=== PATIENT | male | born 2000 | race Caucasian/White ===

== ENCOUNTER 2019-03-08 07:08 | Emergency (ER) | payer BC ==
--- NOTE | 2019-03-08 07:49 | ER Document Report ---
ED General - General Stated Complaint: POSSIBLE OVERDOSE Time Seen by Provider: 03/08/19 07:48 Primary Care Provider: [facility] [Provider Group] - Follow up as needed [facility] [Provider Group] - Follow up as needed Notes: Patient is a 22-year-old male that presents to the emergency department for chief complaint of opiate overdose. Patient states that he snorted heroin around 4 AM this morning, and apparently he was on a snapshot with a friend, and then went unresponsive and his friend called EMS. EMS arrived patient was unresponsive, given 1 mg of intranasal Narcan 1 mg of IV Narcan given 500 mL's of IV fluids. Patient responded, and is now alert and oriented. At this time the patient states that he wants to go home, has no complaints. He does not want any further treatments, states he only did this once, states he is feeling somewhat depressed, but denies any intent for suicide, denies any homicidal or suicidal ideations at this time. He states he has had some depression and anxiety, cannot point to any particular reason why, has not seek treatment for this anytime recently. He states he smokes marijuana on a daily basis. He denies chest pain, shortness of breath, nausea, vomiting, or abdominal pain. Past Medical History: anxiety/depression Past Surgical History: denies pertinent surgical history Social History: former smoker, admits to THC use and heroin use, and occasional ETOH use. Family History: Reviewed and noncontributory for presenting illness Allergies: Reviewed, see documented allergy list. REVIEW OF SYSTEMS: Other than noted above, the 12 point review of systems was reviewed with the patient and were negative, all pertinent findings are included in the HPI. PHYSICAL EXAMINATION: Vital signs reviewed, nursing noted reviewed. GENERAL: Well-appearing, well-nourished and in no acute distress. HEAD: Atraumatic, normocephalic. EYES: Eyes appear normal, extraocular movements intact, sclera anicteric, conjunctiva are normal. ENT: nares patent, oropharynx clear without exudates. Lips mildly dry, mucous membranes moist however. NECK: Normal range of motion, supple without lymphadenopathy LUNGS: Breath sounds clear to auscultation bilaterally and equal. No wheezes rales or rhonchi. HEART: Regular rate and rhythm without murmurs ABDOMEN: Soft, nontender, normoactive bowel sounds. No rebound, guarding, or rigidity. No masses appreciated. EXTREMITIES: Nontender, good range of motion, no pitting or edema. NEUROLOGICAL: No focal neurological deficits. Moves all extremities spontaneously Motor and sensory grossly intact on exam. PSYCH: Normal mood, normal affect. SKIN: Warm, Dry, normal turgor, no rashes or lesions noted on exposed skin - Related Data Allergies/Adverse Reactions: erythromycin base [Erythromycin Base] Allergy (Unknown, Verified 04/10/12 20:36) Past Medical History - Social History Smoking Status: Former Smoker Family History: Reviewed & Not Pertinent - Immunizations Immunizations up to date: Yes Hx Diphtheria, Pertussis, Tetanus Vaccination: Yes - last year Physical Exam - Vital signs Vitals: Temp Pulse Resp BP Pulse Ox 98.2 F 80 17 136/84 H 98 03/08/19 09:11 03/08/19 09:11 03/08/19 09:11 03/08/19 09:11 03/08/19 09:11 Course - Re-evaluation Re-evalutation: Patient seen and examined vital signs reviewed. Patient was evaluated and treated as appropriate for the patient's presenting symptoms and complaint, with consideration of any critical or life threatening conditions that may be associated with their obtained history and exam as noted above. Patient was treated with Narcan by EMS The patient was re-evaluated and was stable, monitored in the ER, without deterioration Evaluation was most consistent with opiate overdose, patient given resources for addiction medicine, as well as for mental health, mother was present as well, and patient was agreeable with this plan of care. Plan of care was discussed with the patient at this point, after careful consideration I feel that that patient can be discharged from the emergency department, the patient was educated treatments and reasons to return to the emergency department based on their presumed diagnosis as noted above, they were advised to followup with a primary care physician in 2-3 days. Patient was agreeable to plan of care. *Note is created using voice recognition software and may contain spelling, syntax or grammatical errors. - Vital Signs Vital signs: Temp Pulse Resp BP Pulse Ox 98.2 F 80 17 136/84 H 98 03/08/19 09:11 03/08/19 09:11 03/08/19 09:11 03/08/19 09:11 03/08/19 09:11 - EKG Interpretation by Me Additional EKG results interpreted by me: EKG demonstrates sinus rhythm with a ventricular rate of 83 bpm, normal axis, normal intervals, no evidence of acute ischemia in this EKG. No prior for comparison. Discharge - Discharge Clinical Impression: Opiate overdose Qualifiers: Encounter type: initial encounter Injury intent: accidental or unintentional Qualified Code(s): T40.601A - Poisoning by unspecified narcotics, accidental (unintentional), initial encounter Condition: Stable Disposition: HOME, SELF-CARE Instructions: Instructions for Home Care Following a Drug Overdose ([facility]) Additional Instructions: [facility]up with [facility], if you do have depression, or do have suicidal thoughts at any time, you can always call the mobile crisis line, which is provided with your paperwork. Please do not use any illegal drugs, as they can be fatal. Referrals: [facility] [Provider Group] - Follow up as needed [facility] [Provider Group] - Follow up as needed
[2019-03-08 09:12] VITALS: BP 136/84
--- NOTE | 2019-03-09 19:09 | EKG REPORT ---
SEVERITY:- NORMAL ECG - SINUS RHYTHM : Confirmed by: Luis Cotter MD 09-Mar-2019 19:08:37
== END 2019-03-08 09:12 | disposition home or self-care (01) ==
LOC: ER 07:08
DX: T40.601A Poisoning by unspecified narcotics, accidental (unintentional), initial encounter (principal); Z87.891 Personal history of nicotine dependence; F12.90 Cannabis use, unspecified, uncomplicated; F11.90 Opioid use, unspecified, uncomplicated
CPT/HCPCS: 93005; 93010; 99285

== ENCOUNTER 2019-03-27 22:13 | Emergency (ER) | payer BC ==
[2019-03-27 22:23] VITALS: BP 142/91
[2019-03-27] MEDS ORDERED: NORMAL SALINE 1000 ML 1,000 ML IV ONE (23:44)
--- NOTE | 2019-03-27 23:45 | ER Document Report ---
ED Medical Screen (RME) - General Chief Complaint: Medical Complaint Stated Complaint: WEAKNESS Time Seen by Provider: 03/27/19 23:33 Notes: Patient is a 19-year-old male with a history of a seizure disorder who presents to the emergency department today with a chief complaint of altered coordination. Patient states he did take his Aptum medication for his seizure disorder this morning. He states he has not been to drink alcohol while taking this medication but he did have a small amount of liquor and 3-4 mixed drinks. Patient states his last drink was around 4 PM. Patient states he laid down for a nap at that time and when he woke up tonight he felt off balance and felt like his coordination was off. Patient states that from the waist up he feels fine but from the waist down he just feels very weak. Patient denies numbness or tingling to his legs. Patient reports he does smoke marijuana but has not used any other recreational drugs in 2 weeks. Patient states he was seen in the emergency department 2 weeks ago for possible heroin overdose. Patient states that he has drank on his seizure medication before and these are the similar symptoms that he has experienced before. TRAVEL OUTSIDE OF THE [place] IN LAST 30 DAYS: No - Related Data Allergies/Adverse Reactions: erythromycin base [Erythromycin Base] Allergy (Unknown, Verified 03/27/19 22:15) Past Medical History Renal/ Medical History: Denies: Hx Peritoneal Dialysis - Immunizations Immunizations up to date: Yes Hx Diphtheria, Pertussis, Tetanus Vaccination: Yes - last year Physical Exam - Vital signs Vitals: Temp Pulse Resp BP Pulse Ox 98.3 F 88 16 142/91 H 99 03/27/19 22:21 03/27/19 22:21 03/27/19 22:21 03/27/19 22:21 03/27/19 22:21 - Cardiovascular Rhythm: Regular Heart sounds: Normal auscultation, S1 appreciated Course - Re-evaluation Re-evalutation: 03/27/19 23:43 Patient is in no acute distress in triage. Patient is mentating appropriately. I have greeted and performed a rapid initial assessment of this patient. A comprehensive ED assessment and evaluation of the patient, analysis of test results and completion of the medical decision making process will be conducted by additional ED providers. - Vital Signs Vital signs: Temp Pulse Resp BP Pulse Ox 98.3 F 88 16 142/91 H 99 08/03/19 22:21 03/27/19 22:21 03/27/19 22:21 03/27/19 22:21 03/27/19 22:21
[2019-03-28 00:06] LABS: ABSOLUTE EOSINOPHILS # (AUTO) 0.3 10^3/uL (0.0-0.6); ABSOLUTE LYMPHOCYTES (AUTO) 1.3 10^3/uL (0.5-4.7); ABSOLUTE MONOCYTES (AUTO) 0.8 10^3/uL (0.1-1.4); ABSOLUTE NEUT (AUTO) 5.3 10^3/uL (1.7-8.2); BASOPHILS % (AUTO) 0.6 % (0-2); EOSINOPHILS % (AUTO) 3.7 % (0-6); HEMATOCRIT 47.1 % (37.9-51.0); HEMOGLOBIN 16.4 g/dL (13.5-17.0); LYMPHOCYTES % (AUTO) 16.9 % (13-45); MEAN CORPUSCULAR HGB CONC 34.8 g/dL (32.0-36.0); MEAN CORPUSCULAR VOLUME 86 fl (80-97); MONOCYTES % (AUTO) 10.4 % (3-13); PLATELET COUNT 200 10^3/uL (150-450); RED BLOOD COUNT 5.47 10^6/uL (4.35-5.55); SEGMENTED NEUTROPHILS % (AUTO) 68.4 % (42-78); TOTAL CELLS COUNTED % (AUTO) 100 %; WHITE BLOOD COUNT 7.8 10^3/uL (4.0-10.5)
[2019-03-28 00:16] LABS: APPEARANCE,URINE TURBID; BILIRUBIN,URINE NEGATIVE (NEGATIVE); COLOR,URINE YELLOW; GLUCOSE, URINE NEGATIVE (NEGATIVE); KETONES,URINE NEGATIVE (NEGATIVE); LEUKOCYTE ESTERASE,URINE NEGATIVE (NEGATIVE); NITRITE,URINE NEGATIVE (NEGATIVE); PROTEIN,URINE NEGATIVE (NEGATIVE); URIC ACID CRYSTALS,URINE TOO NUMEROUS TO CNT /HPF; URINE SPECIFIC GRAVITY 1.023; UROBILINOGEN,URINE NEGATIVE mg/dL (<2.0)
[2019-03-28 00:26] LABS: URINE AMPHETAMINES SCREEN NEGATIVE; URINE BARBITURATES SCREEN NEGATIVE; URINE BENZODIAZEPINES SCREEN NEGATIVE; URINE COCAINE SCREEN UNCONFIRMED POSITIVE; URINE MARIJUANA (THC) SCREEN UNCONFIRMED POSITIVE; URINE METHADONE SCREEN NEGATIVE; URINE PHENCYCLIDINE SCREEN NEGATIVE
[2019-03-28 00:28] LABS: ALBUMIN 4.6 g/dL (3.5-5.0); ALCOHOL 107 mg/dL (NONE DETECTED); ALKALINE PHOSPHATASE 73 U/L (38-126); ANION GAP 8 (5-19); ASPARTATE AMINO TRANSFERASE 21 U/L (17-59); BILIRUBIN,DIRECT 0.1 mg/dL (0.0-0.4); BILIRUBIN,TOTAL 0.3 mg/dL (0.2-1.3); BLOOD UREA NITROGEN 17 mg/dL (7-20); CALCIUM 9.3 mg/dL (8.4-10.2); CARBON DIOXIDE 27 mmol/L (22-30); CHLORIDE 106 mmol/L (98-107); GLUCOSE 91 mg/dL (75-110); POTASSIUM 4.5 mmol/L (3.6-5.0); TOTAL PROTEIN 7.3 g/dL (6.3-8.2)
--- NOTE | 2019-03-28 01:50 | ER Document Report ---
ED General - General Chief Complaint: Medical Complaint Stated Complaint: WEAKNESS Time Seen by Provider: 03/27/19 23:33 Notes: 19-year-old male the emergency department chief complaint altered mental status. Patient reports that he has been drinking today. Is on seizure medications that he has not taken in approximately 2 weeks and took it today as well. States that he did cocaine about 2 weeks ago. Denies any other symptoms. States that he was excessively sleepy earlier but did not have a seizure. Denies any fever, chills, sweats. No other issues at this time. Patient also admits to smoking marijuana. TRAVEL OUTSIDE OF THE [place] IN LAST 30 DAYS: No - HPI Onset: Just prior to arrival Severity: None Pain Level: Denies Associated symptoms: None - Related Data Allergies/Adverse Reactions: erythromycin base [Erythromycin Base] Allergy (Unknown, Verified 03/27/19 22:15) Past Medical History - General Information source: Patient - Social History Smoking Status: Current Every Day Smoker Chew tobacco use (# tins/day): No Frequency of alcohol use: Heavy Drug Abuse: Cocaine, Heroin, Marijuana Lives with: Family Family History: Reviewed & Not Pertinent Patient has suicidal ideation: No Patient has homicidal ideation: No Neurological Medical History: Reports: Hx Seizures Renal/ Medical History: Denies: Hx Peritoneal Dialysis - Immunizations Immunizations up to date: Yes Hx Diphtheria, Pertussis, Tetanus Vaccination: Yes - last year Review of Systems - Review of Systems Notes: Constitutional: denies: Chills, Diaphoresis, Fever, Malaise, Weakness states that he was excessively sleepy earlier EENT: denies: Eye discharge, Blurred vision, Tearing, Double vision, Nose conges tion, Nose discharge, Throat swelling, Mouth pain Cardiovascular: denies: Palpitations, Heart racing, Orthopnea, Dyspnea, Chest pain Respiratory: denies: Cough, Hurts to breathe, Wheezing, Shortness of breath Gastrointestinal: denies: Abdominal pain, Diarrhea, Nausea, Vomiting, Black stools, bright red blood in stool Genitourinary: denies: Burning, Dysuria, Discharge, Frequency, Flank pain, He maturia Musculoskeletal: denies: Joint pain, Joint swelling, Muscle pain, Muscle stiffness, back pain Hematologic/Lymphatic: denies: Anemia, Easy bleeding, Easy bruising, Blood clots Neurological/Psychological: denies: Confusion, Dementia, Depression, Loss of consciousness Skin: No lesions, no masses, no skin breakdown, no abscesses Physical Exam - Vital signs Vitals: Temp Pulse Resp BP Pulse Ox 98.3 F 88 16 142/91 H 99 03/27/19 22:21 03/27/19 22:21 03/27/19 22:21 03/27/19 22:21 03/27/19 22:21 Interpretation: Normal - General General appearance: Appears well, Alert - HEENT Head: Normocephalic, Atraumatic Eyes: Normal Pupils: PERRL - Respiratory Respiratory status: No respiratory distress Chest status: Nontender Breath sounds: Normal Chest palpation: Normal - Cardiovascular Rhythm: Regular Heart sounds: Normal auscultation Murmur: No - Abdominal Inspection: Normal Distension: No distension Bowel sounds: Normal Tenderness: Nontender Organomegaly: No organomegaly - Back Back: Normal, Nontender - Extremities General upper extremity: Normal inspection, Nontender, Normal color, Normal ROM, Normal temperature General lower extremity: Normal inspection, Nontender, Normal color, Normal ROM, Normal temperature, Normal weight bearing. No: Sydnee's sign - Neurological Neuro grossly intact: Yes Cognition: Normal Orientation: AAOx4 Clive Coma Scale Eye Opening: Spontaneous Clive Coma Scale Verbal: Oriented Clive Coma Scale Motor: Obeys Commands Clive Coma Scale Total: 15 Speech: Normal Motor strength normal: LUE, RUE, LLE, RLE Sensory: Normal - Psychological Associated symptoms: Normal affect, Normal mood - Skin Skin Temperature: Warm Skin Moisture: Dry Skin Color: Normal Course - Re-evaluation Re-evalutation: 03/28/19 01:51 Family members were present approximately 4 than were in the room. Before I could begin speaking with the patient they wanted know what the results of his drug screen was. I politely informed him that my discussion was being had with an adult male and that I would not be able to disclose any of that information without his permission. Patient did state that I could disclose the alcohol l evel in front of the family members which I did at his request. I then felt like I was being pressured to give information for which I did not feel comfortable with. I politely asked all the family members to leave. Had a kita discussion with the patient and the patient only with regards to his positive drug screen. Patient did admit that he had done cocaine about 2 weeks ago, had shot some heroin and smoked some weed as well. States that he has been drinking. He states that his family members keep bothering him. He does not want help. States that he is just being a little crazy for little while but does not think he is a harm to himself or others. Patient at this time maintains a clear train of thought. I do not think the patient is able to be placed on involuntary commission by any means at this time. He is awake, alert, has responsible adults with him, feel comfortable discharging at this time in stable condition. Long discussion had with the patient as well about taking his seizure medications as instructed and not to do alcohol or any illicit drugs. I also reiterated to him as well that marijuana is considered an illegal drug and state in [place] and that he should probably not do that either. 03/28/19 01:56 Laboratory 03/27/19 03/27/19 03/27/19 23:55 23:55 23:55 WBC 7.8 RBC 5.47 Hgb 16.4 Hct 47.1 MCV 86 MCH 30.0 MCHC 34.8 RDW 13.0 Plt Count 200 Seg Neutrophils % 68.4 Lymphocytes % 16.9 Monocytes % 10.4 Eosinophils % 3.7 Basophils % 0.6 Absolute Neutrophils 5.3 Absolute Lymphocytes 1.3 Absolute Monocytes 0.8 Absolute Eosinophils 0.3 Absolute Basophils 0.0 Sodium 141.0 Potassium 4.5 Chloride 106 Carbon Dioxide 27 Anion Gap 8 BUN 17 Creatinine 1.18 Est GFR ( Amer) > 60 Est GFR (Non-Af Amer) > 60 Glucose 91 Calcium 9.3 Total Bilirubin 0.3 Direct Bilirubin 0.1 Neonat Total Bilirubin Not Reportable Neonat Direct Bilirubin Not Reportable Neonat Indirect Bili Not Reportable AST 21 ALT 34 Alkaline Phosphatase 73 Total Protein 7.3 Albumin 4.6 Urine Color YELLOW Urine Appearance TURBID Urine pH 5.0 Ur Specific Warren 1.023 Urine Protein NEGATIVE Urine Glucose (UA) NEGATIVE Urine Ketones NEGATIVE Urine Blood NEGATIVE Urine Nitrite NEGATIVE Urine Bilirubin NEGATIVE Urine Urobilinogen NEGATIVE Ur Leukocyte Esterase NEGATIVE Urine RBC (Auto) 1 Urine Bacteria (Auto) TRACE Uric Acid Cryst (Auto) TOO NUMEROUS TO CNT Urine Mucus (Auto) RARE Urine Ascorbic Acid 20 H Urine Opiates Screen Urine Methadone Screen Ur Barbiturates Screen Ur Phencyclidine Scrn Ur Amphetamines Screen U Benzodiazepines Scrn Urine Cocaine Screen U Marijuana (THC) Screen Serum Alcohol 107 03/27/19 23:55 WBC RBC Hgb Hct MCV MCH MCHC RDW Plt Count Seg Neutrophils % Lymphocytes % Monocytes % Eosinophils % Basophils % Absolute Neutrophils Absolute Lymphocytes Absolute Monocytes Absolute Eosinophils Absolute Basophils Sodium Potassium Chloride Carbon Dioxide Anion Gap BUN Creatinine Est GFR ( Amer) Est GFR (Non-Af Amer) Glucose Calcium Total Bilirubin Direct Bilirubin Neonat Total Bilirubin Neonat Direct Bilirubin Neonat Indirect Bili AST ALT Alkaline Phosphatase Total Protein Albumin Urine Color Urine Appearance Urine pH Ur Specific Warren Urine Protein Urine Glucose (UA) Urine Ketones Urine Blood Urine Nitrite Urine Bilirubin Urine Urobilinogen Ur Leukocyte Esterase Urine RBC (Auto) Urine Bacteria (Auto) Uric Acid Cryst (Auto) Urine Mucus (Auto) Urine Ascorbic Acid Urine Opiates Screen NEGATIVE Urine Methadone Screen NEGATIVE Ur Barbiturates Screen NEGATIVE Ur Phencyclidine Scrn NEGATIVE Ur Amphetamines Screen NEGATIVE U Benzodiazepines Scrn NEGATIVE Urine Cocaine Screen UNCONFIRMED POSITIVE U Marijuana (THC) Screen UNCONFIRMED POSITIVE Serum Alcohol - Vital Signs Vital signs: Temp Pulse Resp BP Pulse Ox 98.3 F 88 16 142/91 H 99 03/27/19 22:21 03/27/19 22:21 03/27/19 22:21 03/27/19 22:21 03/27/19 22:21 - Laboratory Result Diagrams: 03/27/19 23:55 03/27/19 23:55 Laboratory results interpreted by me: 03/27/19 23:55 Urine Ascorbic Acid 20 H Discharge - Discharge Clinical Impression: Substance abuse Alcohol intoxication Qualifiers: Complication of substance-induced condition: uncomplicated Qualified Code(s): F10.920 - Alcohol use, unspecified with intoxication, uncomplicated Condition: Good Disposition: HOME, SELF-CARE Instructions: Acute Alcohol Intoxication ([facility]) Additional Instructions: Please do not mix alcohol and description drugs. Take your seizure medication as prescribed by your neurologist. Do not do illicit drugs. Drug Screening Screening for drug overdoses and "street drugs" is often done during the medical evaluation. This is not a reflection on you -- drug screening is required on every patient in your circumstance. Drug tests are needed to evaluate new seizures, confusion, agitation, or any unexplained altered mental state. Drug tests may be required for depressed patients, and for those entering a drug or alcohol treatment program. Tests for recreational drugs (narcotics, cocaine, amphetamines, marijuana) are often required as part of a pre-employment exam. They may also be required by your employer in evaluating work-related injuries. Please talk to the doctor if you have any questions about your test results or treatment plan.
== END 2019-03-28 02:05 | disposition home or self-care (01) ==
LOC: ER 22:13
DX: F10.920 Alcohol use, unspecified with intoxication, uncomplicated (principal); F19.10 Other psychoactive substance abuse, uncomplicated; R53.1 Weakness; R41.82 Altered mental status, unspecified; F12.90 Cannabis use, unspecified, uncomplicated; F17.200 Nicotine dependence, unspecified, uncomplicated
CPT/HCPCS: 99284; 96360; 36415; 80307 ×2; 85025; 80053; 81001; J7030

== ENCOUNTER 2019-04-09 12:12 | Emergency (ER) | payer BC ==
--- NOTE | 2019-04-09 12:53 | ER Document Report ---
ED Medical Screen (RME) - General Chief Complaint: Seizure Stated Complaint: SEIZURE Time Seen by Provider: 04/09/19 12:46 Mode of Arrival: Ambulatory Information source: Patient, Relative Notes: Patient presents as a known epileptic who stopped taking his medication 2 weeks ago. Patient states that he did not like the way it his seizure medication made him feel. Patient had witnessed seizure today lasting for a few minutes. Seizure occurred while patient was sitting in a vehicle. There was no injury. Mother states that patient since then has been having some occasional staring episodes. I have greeted and performed a rapid initial assessment of this patient. A comprehensive ED assessment and evaluation of the patient, analysis of test results and completion of the medical decision making process will be conducted by additional ED providers. TRAVEL OUTSIDE OF THE [place] IN LAST 30 DAYS: No - Related Data Allergies/Adverse Reactions: erythromycin base [Erythromycin Base] Allergy (Unknown, Verified 04/09/19 12:13) Past Medical History Neurological Medical History: Reports: Hx Seizures Renal/ Medical History: Denies: Hx Peritoneal Dialysis - Immunizations Immunizations up to date: Yes Hx Diphtheria, Pertussis, Tetanus Vaccination: Yes - last year Physical Exam - Vital signs Vitals: Temp Pulse Resp BP Pulse Ox 97.9 F 77 14 149/81 H 96 04/09/19 12:15 04/09/19 12:15 04/09/19 12:15 04/09/19 12:15 04/09/19 12:15 - Neurological Neuro grossly intact: Yes Cognition: Normal Clive Coma Scale Eye Opening: Spontaneous Clive Coma Scale Verbal: Oriented Clive Coma Scale Motor: Obeys Commands Bradley Coma Scale Total: 15 Course - Vital Signs Vital signs: Temp Pulse Resp BP Pulse Ox 97.9 F 77 14 149/81 H 96 04/09/19 12:15 04/09/19 12:15 04/09/19 12:15 04/09/19 12:15 04/09/19 12:15
[2019-04-09 13:19] LABS: ABSOLUTE BASOPHILS # (AUTO) 0.1 10^3/uL (0.0-0.2); ABSOLUTE EOSINOPHILS # (AUTO) 0.1 10^3/uL (0.0-0.6); ABSOLUTE LYMPHOCYTES (AUTO) 1.2 10^3/uL (0.5-4.7); ABSOLUTE MONOCYTES (AUTO) 0.8 10^3/uL (0.1-1.4); ABSOLUTE NEUT (AUTO) 9.9 10^3/uL (1.7-8.2); BASOPHILS % (AUTO) 0.4 % (0-2); EOSINOPHILS % (AUTO) 1.1 % (0-6); HEMATOCRIT 45.5 % (37.9-51.0); HEMOGLOBIN 15.7 g/dL (13.5-17.0); MEAN CORPUSCULAR HEMOGLOBIN 29.7 pg (27.0-33.4); MEAN CORPUSCULAR HGB CONC 34.6 g/dL (32.0-36.0); MEAN CORPUSCULAR VOLUME 86 fl (80-97); MONOCYTES % (AUTO) 6.9 % (3-13); PLATELET COUNT 209 10^3/uL (150-450); RED BLOOD COUNT 5.31 10^6/uL (4.35-5.55); RED CELL DISTRIBUTION WIDTH 12.8 % (11.5-14.0); SEGMENTED NEUTROPHILS % (AUTO) 81.6 % (42-78); TOTAL CELLS COUNTED % (AUTO) 100 %; WHITE BLOOD COUNT 12.1 10^3/uL (4.0-10.5)
[2019-04-09 13:37] LABS: ALBUMIN 4.8 g/dL (3.5-5.0); ALKALINE PHOSPHATASE 75 U/L (38-126); ANION GAP 10 (5-19); ASPARTATE AMINO TRANSFERASE 22 U/L (17-59); BILIRUBIN,DIRECT 0.1 mg/dL (0.0-0.4); BILIRUBIN,TOTAL 0.5 mg/dL (0.2-1.3); BLOOD UREA NITROGEN 18 mg/dL (7-20); CALCIUM 10.1 mg/dL (8.4-10.2); CARBON DIOXIDE 25 mmol/L (22-30); CHLORIDE 102 mmol/L (98-107); GLUCOSE 85 mg/dL (75-110); POTASSIUM 4.5 mmol/L (3.6-5.0); TOTAL PROTEIN 7.2 g/dL (6.3-8.2)
--- NOTE | 2019-04-09 15:51 | ER Document Report ---
HPI - HPI Time Seen by Provider: 04/09/19 12:46 Pain Level: 0 Notes: Patient is a 19-year-old male with history of seizure disorder, excessive alcohol consumption, and drug abuse. Patient states that he did have a seizure around 11 PM that was witnessed when he was sitting down into work. He did not fall or injure himself in any way. His brother brought him to the emergency department today for evaluation. He had a postictal phase of about 15 minutes and then returned to baseline thereafter per family. Patient states that he feels well currently and is already ready to go home. He has not been taking any of his seizure medicine for the past couple weeks as he did not like the way it made him feel. Patient states that he did drink alcohol last night, but none today. He is otherwise able to eat and drink without difficulty. He is urinating normally and having normal bowel movements. Denies any recent illness. They do have access to speak with her neurologist documentation lead down in [place]. Denies any headache, fever, head injury, neck pain, changes in vision/speech/mentation/hearing, URI, sore throat, chest pain, palpitations, syncope, cough, shortness of breath, wheeze, dyspnea, abdominal pain, nausea/vomiting/diarrhea, urinary retention, dysuria, hematuria, loss of control of bowel or bladder, numbness/tingling, saddle anesthesia, muscle p aralysis/weakness, or rash. - ROS Systems Reviewed and Negative: Yes All other systems reviewed and negative - DERM Skin Color: Normal Past Medical History - General Information source: Patient, Relative - Social History Smoking Status: Never Smoker Chew tobacco use (# tins/day): No Frequency of alcohol use: None Drug Abuse: Marijuana Family History: Reviewed & Not Pertinent Patient has suicidal ideation: No Patient has homicidal ideation: No Neurological Medical History: Reports: Hx Seizures Renal/ Medical History: Denies: Hx Peritoneal Dialysis - Immunizations Immunizations up to date: Yes Hx Diphtheria, Pertussis, Tetanus Vaccination: Yes - last year Vertical Provider Document - CONSTITUTIONAL Agree With Documented VS: Yes Notes: PHYSICAL EXAMINATION: GENERAL: Well-appearing, well-nourished and in no acute distress. A&Ox4. Answers questions appropriately. HEAD: Atraumatic, normocephalic. Non-tender. No bronson sign EYES: Pupils equal round and reactive to light, extraocular movements intact, sclera anicteric, conjunctiva are normal. No raccoon eyes/entrapment ENT: EAC clear b/l. TM's intact b/l without erythema, fluid, or perforation. Nares patent and without discharge. oropharynx clear without exudates. No tonsilar hypertrophy or erythema. Moist mucous membranes. No sinus tenderness. No hemotympanum/CSF discharge. NECK: Normal range of motion, supple without lymphadenopathy. No rigidity. No midline tenderness. LUNGS: Breath sounds clear to auscultation bilaterally and equal. No wheezes rales or rhonchi. HEART: Regular rate and rhythm without murmurs, rubs, gallops. ABDOMEN: Soft, nontender, nondistended abdomen. No guarding, no rebound. Normal bowel sounds present. No CVA tenderness bilaterally. Musculoskeletal: Ext b/l: FROM to passive/active. Strength 5+/5. No deficits noted. No bony tenderness of extremities. Back: FROM to passive/active. Strength 5+/5. No vertebral point tenderness, stepoffs, or deformities. No other bony tenderness or ecchymosis. Extremities: No cyanosis, clubbing, or edema b/l. Peripheral pulses 2+. Capillary refill less than 2 seconds. NEUROLOGICAL: NIH 0. GCS 15. Cranial nerves grossly intact. Normal speech, normal gait. Normal sensory, motor exams. Reflexes 2+ b/l. LEXII's negative. Pronator drift negative. Heel/madden, finger/nose wnl. PSYCH: Normal mood, normal affect. SKIN: Warm, Dry, normal turgor, no rashes or lesions noted. - INFECTION CONTROL TRAVEL OUTSIDE OF THE [place] IN LAST 30 DAYS: No Course - Re-evaluation Re-evalutation: 04/09/19 15:49 Patient is an afebrile, well-hydrated, 19-year-old male who presents with a sei zure about 5 hours ago with known seizure disorder, not currently on his medicines. Vitals are acceptable without significant tachycardia, tachypnea, or hypoxia. PE is otherwise unremarkable for any focal neurological deficits, neurovascular, otherwise, obvious tendon/leg rupture, obvious fracture /dislocation. Patient is nontoxic-appearing and is tolerating p.o. without difficulty. Labs are unremarkable. NIH 0, GCS 15, cranial nerves grossly intact. No further work-up warranted at this time. I did review with patient about abstaining from alcohol and drugs. Low suspicion for any acute glaucoma, temporal arteritis, meningitis, intracranial hemorrhage, ischemic stroke, or fracture at this time. Patient is aware that his condition can change from initial presentation and that he needs to monitor symptoms closely for any acute changes. Recheck with your PCM in 3 to 5 days. Consult with your neurologist. Return to the ED with any other worsening/concerning symptoms. Patient is in agreement. - Vital Signs Vital signs: Temp Pulse Resp BP Pulse Ox 97.9 F 77 19 149/81 H 99 04/09/19 12:15 04/09/19 12:15 04/09/19 13:37 04/09/19 12:15 04/09/19 13:37 - Laboratory Result Diagrams: 04/09/19 13:00 04/09/19 13:00 Laboratory results interpreted by me: 04/09/19 13:00 WBC 12.1 H Seg Neutrophils % 81.6 H Lymphocytes % 10.0 L Absolute Neutrophils 9.9 H Discharge - Discharge Clinical Impression: Seizure Condition: Stable Disposition: HOME, SELF-CARE Additional Instructions: Rest, Ice/cool compress Refrain from any drug/etoh use Tylenol/ibuprofen as needed Light stretches daily Strength exercises as able Moist heat and massage may help F/u with your PCP in 3-5 days for a recheck Consider consult(s) with Neurology for ongoing/worsening symptoms Return to the ED with any worsening symptoms and/or development of fever, headache, changes in behavior/mentation/vision/speech, chest pain, palpitations, syncope, shortness of breath, trouble breathing, abdominal pain, n/v/d, blood in stool/urine, loss of control of bowel/bladder, urinary retention, muscle weakness/paralysis, saddle anesthesia, numbness/tingling, or other worsening symptoms that are concerning to you. Forms: Elevated Blood Pressure Referrals: KYM WEI MD [NO LOCAL MD] - Follow up as needed
[2019-04-09 16:03] VITALS: BP 134/72
--- NOTE | 2019-04-10 10:27 | EKG REPORT ---
SEVERITY:- NORMAL ECG - SINUS RHYTHM : Confirmed by: Munir Russell 10-Apr-2019 10:26:06
== END 2019-04-09 16:00 | disposition home or self-care (01) ==
LOC: ER 12:12
DX: G40.909 Epilepsy, unspecified, not intractable, without status epilepticus (principal)
CPT/HCPCS: 36415; 80053; 85025; 93005; 93010; 99284

== ENCOUNTER 2020-07-29 22:01 | Emergency (ER) | payer BC ==
--- NOTE | 2020-07-29 22:28 | ER Document Report ---
ED Medical Screen (RME) - General Chief Complaint: Possible Overdose Stated Complaint: POSSIBLE OVERDOSE Time Seen by Provider: 07/29/20 22:25 Mode of Arrival: Ambulatory Information source: Patient Notes: 20-year-old male presented to ED because his parents think he overdosed his Lexapro. He states he did take 2 of them today but there is more than not missing from the bottle. His family is concerned that he is overdosed. He is alert oriented respirations regular nonlabored speaking in full sentences. He states he did come home earlier from drinking. He had had a couple mixed drinks and this concerned his parents. He states he does not smoke cigarettes but he does use marijuana. He states he does not use any other illicit drugs. Will get blood and urine and he will be monitored to ensure that he did not take more than what he stated. I have greeted and performed a rapid initial assessment of this patient. A comprehensive ED assessment and evaluation of the patient, analysis of test results and completion of medical decision making process will be conducted by an additional ED providers. TRAVEL OUTSIDE OF THE [place] IN LAST 30 DAYS: No - Related Data Allergies/Adverse Reactions: erythromycin base [Erythromycin Base] Allergy (Unknown, Verified 04/09/19 12:13) Past Medical History Neurological Medical History: Reports: Hx Seizures Renal/ Medical History: Denies: Hx Peritoneal Dialysis - Immunizations Immunizations up to date: Yes Hx Diphtheria, Pertussis, Tetanus Vaccination: Yes - last year Physical Exam - Vital signs Vitals: Temp Pulse Resp BP Pulse Ox 98.0 F 97 16 104/69 97 07/29/20 22:07 07/29/20 22:07 07/29/20 22:07 07/29/20 22:07 07/29/20 22:07 Course - Vital Signs Vital signs: Temp Pulse Resp BP Pulse Ox 98.0 F 97 16 104/69 97 07/29/20 22:07 07/29/20 22:07 07/29/20 22:07 07/29/20 22:07 07/29/20 22:07
[2020-07-29 23:28] LABS: APPEARANCE,URINE CLEAR; BILIRUBIN,URINE NEGATIVE (NEGATIVE); COLOR,URINE STRAW; GLUCOSE, URINE NEGATIVE (NEGATIVE); KETONES,URINE NEGATIVE (NEGATIVE); LEUKOCYTE ESTERASE,URINE NEGATIVE (NEGATIVE); NITRITE,URINE NEGATIVE (NEGATIVE); PROTEIN,URINE NEGATIVE (NEGATIVE); URINE SPECIFIC GRAVITY 1.004; UROBILINOGEN,URINE NEGATIVE mg/dL (<2.0)
[2020-07-29 23:29] LABS: ABSOLUTE BASOPHILS # (AUTO) 0.1 10^3/uL (0.0-0.2); ABSOLUTE EOSINOPHILS # (AUTO) 0.5 10^3/uL (0.0-0.6); ABSOLUTE MONOCYTES (AUTO) 0.7 10^3/uL (0.1-1.4); ABSOLUTE NEUT (AUTO) 7.9 10^3/uL (1.7-8.2); BASOPHILS % (AUTO) 0.6 % (0-2); EOSINOPHILS % (AUTO) 4.3 % (0-6); HEMATOCRIT 47.3 % (37.9-51.0); HEMOGLOBIN 16.4 g/dL (13.5-17.0); MEAN CORPUSCULAR HEMOGLOBIN 29.5 pg (27.0-33.4); MEAN CORPUSCULAR HGB CONC 34.7 g/dL (32.0-36.0); MEAN CORPUSCULAR VOLUME 85 fl (80-97); MONOCYTES % (AUTO) 6.7 % (3-13); PLATELET COUNT 229 10^3/uL (150-450); RED BLOOD COUNT 5.55 10^6/uL (4.35-5.55); RED CELL DISTRIBUTION WIDTH 12.8 % (11.5-14.0); SEGMENTED NEUTROPHILS % (AUTO) 70.4 % (42-78); TOTAL CELLS COUNTED % (AUTO) 100 %; WHITE BLOOD COUNT 11.2 10^3/uL (4.0-10.5)
[2020-07-29 23:43] LABS: URINE AMPHETAMINES SCREEN NEGATIVE; URINE BARBITURATES SCREEN NEGATIVE; URINE BENZODIAZEPINES SCREEN NEGATIVE; URINE COCAINE SCREEN NEGATIVE; URINE METHADONE SCREEN NEGATIVE; URINE PHENCYCLIDINE SCREEN NEGATIVE
[2020-07-29 23:44] LABS: URINE MARIJUANA (THC) SCREEN UNCONFIRMED POSITIVE
[2020-07-29 23:55] LABS: ALBUMIN 4.9 g/dL (3.5-5.0); ALKALINE PHOSPHATASE 66 U/L (38-126); ANION GAP 12 (5-19); ASPARTATE AMINO TRANSFERASE 29 U/L (17-59); BILIRUBIN,DIRECT 0.2 mg/dL (0.0-0.4); BILIRUBIN,TOTAL 0.4 mg/dL (0.2-1.3); BLOOD UREA NITROGEN 16 mg/dL (7-20); CALCIUM 9.6 mg/dL (8.4-10.2); CARBON DIOXIDE 27 mmol/L (22-30); CHLORIDE 103 mmol/L (98-107); GLUCOSE 100 mg/dL (75-110); POTASSIUM 4.6 mmol/L (3.6-5.0); TOTAL PROTEIN 7.4 g/dL (6.3-8.2)
[2020-07-30 00:24] VITALS: BP 135/98
--- NOTE | 2020-07-30 00:42 | ER Document Report ---
ED General - General Chief Complaint: Possible Overdose Stated Complaint: POSSIBLE OVERDOSE Time Seen by Provider: 07/29/20 22:25 Mode of Arrival: Ambulatory Information source: Patient Notes: This 20-year-old male presents to the emergency department with his mother with concerns that he may have taken an excessive amount of Lexapro. Apparently, he was out with friends drinking and upon arriving home the mother received a text stating that Vipul had taken 10 tablets of the Lexapro which is a 10 mg tablet. He has recently gotten a new prescription and the mother noted that the bottle appeared to not look right. Upon closer scrutiny she found that there were missing tablets. The patient states that he took 2 tablets and that he flushed the others. Because of concerns after talking to poison control they came to the emergency department for further evaluation and treatment. The patient has a seizure disorder and is on Vimpat. At the time of this examiner's evaluation the patient is stating that he is ready to go. TRAVEL OUTSIDE OF THE [place] IN LAST 30 DAYS: No - Related Data Allergies/Adverse Reactions: erythromycin base [Erythromycin Base] Allergy (Unknown, Verified 04/09/19 12:13) Past Medical History - General Information source: Patient - Social History Smoking Status: Never Smoker Frequency of alcohol use: Occasional Drug Abuse: Marijuana Family History: Reviewed & Not Pertinent Neurological Medical History: Reports: Hx Seizures Renal/ Medical History: Denies: Hx Peritoneal Dialysis - Immunizations Immunizations up to date: Yes Hx Diphtheria, Pertussis, Tetanus Vaccination: Yes - last year Review of Systems - Review of Systems Notes: Constitutional: Negative for fever. HENT: Negative for sore throat. Eyes: Negative for visual changes. Cardiovascular: Negative for chest pain. Respiratory: Negative for shortness of breath. Gastrointestinal: Negative for abdominal pain, vomiting or diarrhea. Genitourinary: Negative for dysuria. Musculoskeletal: Negative for back pain. Skin: Negative for rash. Neurological: Negative for headaches, weakness or numbness. 10 point ROS negative except as marked above and in HPI. Physical Exam - Vital signs Vitals: Temp Pulse Resp BP Pulse Ox 98.0 F 97 16 104/69 97 07/29/20 22:07 07/29/20 22:07 07/29/20 22:07 07/29/20 22:07 07/29/20 22:07 - Notes Notes: PHYSICAL EXAMINATION: Physical Exam: General: Well-nourished well-developed 20-year-old male in no acute distress HEENT: NC/AT, pupils equal round and reactive to light, MM moist,nares clear, oropharynx clear, airway patent Neck: supple, no adenopathy, no masses. Good range of motion Lungs: clear, no wheezing, no rales no rhonchi CVS: Regular rate and rhythm no murmur gallop or rub Abdomen: Soft, active, nontender, no masses, no hepatosplenomegaly Ext: No edema, clubbing or cyanosis. Neuro: Alert and responsive, moving all 4 extremities on command, cranial nerves intact, no focal findings Skin: Intact no open lesions, no rash PSYCH: Normal mood, normal affect. Course - Re-evaluation Re-evalutation: 07/30/20 01:08 Upon entering the room to talk with the patient and his mother, the patient states that he is ready to go he does not want to stay here and be kept on a monitor for 6 hours as recommended by poison control. He has not provided a urine specimen for urine drug screen and he states he did not take an overdose of medication to try to harm himself. I have discussed with the patient and his mother why the recommendation for 6 hours of monitoring was made explained that given the time that he has been here already we are talking about another 3-hour and 15 minutes of monitoring. Patient states that he will take his own risk he knows that he did not take an overdose of medication and he is ready to sign out AGAINST MEDICAL ADVICE. The mother states that she is okay with that. The patient has signed out AMA and has left the emergency department - Vital Signs Vital signs: Temp Pulse Resp BP Pulse Ox 98.0 F 97 16 135/98 H 96 07/29/20 22:29 07/29/20 22:07 07/30/20 00:00 07/29/20 23:38 07/30/20 00:00 - Laboratory Result Diagrams: 07/29/20 23:05 07/29/20 23:05 Laboratory results interpreted by me: 07/29/20 23:05 WBC 11.2 H 07/30/20 00:59 I have reviewed laboratory data and used this information for the treatment decisions regarding the patient. Discharge - Discharge Clinical Impression: Encounter for medication review Condition: Good Disposition: AGAINST MEDICAL ADVICE
== END 2020-07-30 00:55 | disposition left against medical advice (07) ==
LOC: ER 22:01
DX: Z04.89 Encounter for examination and observation for other specified reasons (principal); F12.10 Cannabis abuse, uncomplicated; G40.909 Epilepsy, unspecified, not intractable, without status epilepticus; Z79.899 Other long term (current) drug therapy; Z88.1 Allergy status to other antibiotic agents; Z53.29 Procedure and treatment not carried out because of patient's decision for other reasons
CPT/HCPCS: 36415; 80053; 80307; 81001; 83690; 85025; 99283